=== PATIENT | female | born 1965 | race American Indian/Alaskan Native ===

== ENCOUNTER 2016-07-22 07:41 | Outpatient (CLI) | payer BC ==
--- NOTE | 2016-07-22 13:13 | Mammography Report ---
BILATERAL DIGITAL SCREENING MAMMOGRAM with CAD: 07/22/16 07:41:00 CLINICAL: Routine screening. COMPARISON:None available. FINDINGS: The breasts are almost entirely fatty. No mass, architectural distortion or suspicious calcifications. IMPRESSION: No mammographic evidence of malignancy. BI-RADS CATEGORY: 1 - - Negative RECOMMENDATION: Routine mammographic screening in one year. COMMENT: Patient follow-up letters are generated by our [employer] application.
== END 2016-07-22 07:42 | disposition home or self-care (01) ==
LOC: MAMMO 07:41
PROVIDERS: ATTEND Family Medicine
DX: Z12.31 Encounter for screening mammogram for malignant neoplasm of breast (principal)
CPT/HCPCS: 77067; G0202

== ENCOUNTER 2017-06-10 03:14 | Emergency (ER) | payer BC ==
[2017-06-10] MEDS ORDERED: TORADOL ONE (03:31)
[2017-06-10] MEDS ORDERED: DUONEB *Not for PRN Use IH ONE ×2 (03:31→03:50)
[2017-06-10 03:35] VITALS: BP 129/79
[2017-06-10] MEDS ORDERED: ZOFRAN ONE ×2 (03:35)
[2017-06-10] MEDS ORDERED: TORADOL IM ONE (03:51)
[2017-06-10] MEDS ORDERED: ZOFRAN IM ONE (03:51)
--- NOTE | 2017-06-10 04:20 | Emergency Department Report ---
Minor Respiratory - HPI Chief Complaint: Upper Respiratory Infection Stated Complaint: COLD SX Time Seen by Provider: 06/10/17 04:19 Duration: 2 Days Severity: moderate Minor Respiratory: Yes Rhinorrhea, Yes Sore Throat, Yes Able to Tolerate Fluids , Yes Cough, Yes Sick Contacts, Yes Fever, No Ear Pain, No Hemoptysis, No Chest Pain, No Shortness of Breath Other History: Patient is a 52-year-old female who presents to ED complaining of cough, but his fever 2 days. She admits intermittent dry cough that causes her chest pain. Patient's sign she denies nausea/vomiting/abdominal pain/chest pain/shortness of breath ED Review of Systems ROS: Stated complaint: COLD SX Other details as noted in HPI Constitutional: denies: chills, fever Eyes: denies: eye pain, eye discharge, vision change ENT: throat pain. denies: ear pain, dental pain, congestion Respiratory: cough. denies: shortness of breath, wheezing Cardiovascular: denies: chest pain, palpitations Endocrine: no symptoms reported Gastrointestinal: denies: abdominal pain, nausea, diarrhea Genitourinary: denies: urgency, dysuria, frequency, hematuria, discharge Musculoskeletal: denies: back pain, joint swelling, arthralgia Skin: denies: rash, lesions Neurological: denies: headache, weakness, paresthesias Psychiatric: denies: anxiety, depression Hematological/Lymphatic: denies: easy bleeding, easy bruising ED Past Medical Hx - Past Medical History Previous Medical History?: Yes Hx Hypertension: Yes Additional medical history: DEPRESSION - Surgical History Past Surgical History?: Yes Additional Surgical History: - Social History Smoking Status: Never Smoker Substance Use Type: None - Medications Home Medications: Home Medications Medication Instructions Recorded Confirmed Last Taken Type HYDROcodone/APAP 5-325 [[place] 1 each PO Q6HR PRN #14 tablet 09/17/13 Unknown Rx 5/325 mg] Hyoscyamine Subl [Levsin Sl] 0.125 mg SL Q4HR PRN #7 tablet 09/17/13 Unknown Rx Lisinopril/Hydrochlorothiazide 1 tab PO QDAY 09/17/13 09/17/13 09/17/13 16:21 History [Zestoretic 20-12.5 mg] Ondansetron [Zofran Odt] 4 mg PO Q4H #14 tab.rapdis 09/17/13 Unknown Rx Sertraline [Zoloft] 50 PO 09/17/13 09/17/13 09/17/13 16:23 History Dicyclomine [Bentyl] 20 mg PO QID #20 tablet 07/26/14 Unknown Rx Promethazine [Phenergan] 25 mg PO Q6H PRN #14 tablet 07/26/14 Unknown Rx Acetamin/Codeine 120-12Mg/5 ml 5 ml PO TID PRN #80 ml 06/10/17 Unknown Rx [Tylenol/Codeine] Benzonatate [Tessalon Perles] 100 mg PO Q8HR #24 capsule 06/10/17 Unknown Rx Cpm/PE/Dm/Acetaminophen/Guaifn 1 each PO Q6H #30 tablet.seq 06/10/17 Unknown Rx [Tylenol Cold-Flu Day-Nt Caplet] Ibuprofen [Motrin] 800 mg PO Q8HR PRN #40 tablet 06/10/17 Unknown Rx Minor Respiratory Exam - Exam General: Vital signs noted. No distress. Alert and acting appropriately. HEENT: Yes Moist Mucous Membranes, No Pharyngeal Erythema, No Pharyngeal Exudates, No Rhinorrhea, No Conjuctival Injection, No Frontal Tenderness, No Maxillary Tenderness Ear: Neither TM Bulge, Neither TM Erythema, Neither EAC Pain, Neither EAC Discharge Neck: Yes Supple, No Adenopathy Lungs: Yes Good Air Exchange, No Wheezes, No Ronchi, No Stridor, No Cough, No Labored Respirations, No Retractions, No Use of Accessory Muscles, No Other Abnormal Lung Sounds Heart: Yes Regular, No Murmur Abdomen: Yes Normal Bowel Sounds, No Tenderness, No Peritoneal Signs Skin: No Rash, No Edema Neurologic: Alert and oriented, no deficits. Musculoskeletal: Unremarkable. ED Course Vital Signs 06/10/17 06/10/17 06/10/17 03:20 03:47 04:01 Temperature 101.9 F H 101.9 F H Pulse Rate 124 H 124 H Respiratory 24 20 20 Rate Blood Pressure 129/79 Blood Pressure 129/79 [Right] O2 Sat by Pulse 97 97 Oximetry ED Medical Decision Making - Radiology Data Radiology results: report reviewed, image reviewed FINAL REPORT EXAM: XR CHEST ROUTINE 2V HISTORY: fever/cough TECHNIQUE: PA and lateral chest radiographs PRIORS: None. FINDINGS: No mediastinal shift. Cardiac silhouette is not enlarged. No pneumothorax, effusion, or focal pulmonary opacity. No acute skeletal finding. IMPRESSION: No focal pulmonary opacity. Transcribed By: MB Dictated By: NORAH GALAN MD Electronically Authenticated By: NORAH GALAN MD Signed Date/Time: 06/10/17 0058 - Medical Decision Making 52-year-old female presents with influenza A infection. Fever reduced during the ED stay. Discussed with mother symptomatic relief with [id number] medications. Influenza a test positive, and B test negative. Discussed sit also symptoms over 48 hours so the no need for Tamiflu Chest x-ray shows no acute cardiopulmonary findings I discussed test results with the patient. Discussed continue Tylenol and Motrin as needed for fever and pain. Discussed increase fluids and diet intake. Discussed rest much needed. Discussed daily vitamin C for immune booster. Discussed follow-up with PCP in 3-5 days. Patient verbally states she understands and will comply the following instructions and follow-up Vital signs stable. Patient is in no acute distress Critical care attestation.: If time is entered above; I have spent that time in minutes in the direct care of this critically ill patient, excluding procedure time. ED Disposition Clinical Impression: Influenza A, Viral syndrome Disposition: DC-01 TO HOME OR SELFCARE Is pt being admited?: No Does the pt Need Aspirin: No Condition: Stable Instructions: Influenza (ED), H1N1 Influenza (ED), Viral Syndrome (ED) Additional Instructions: Make sure to follow up with the primary care physician as discussed. Take all your medications as you've been prescribed. If you have any worsening symptoms or develop new symptoms please return to ED immediately. Prescriptions: Acetamin/Codeine 120-12Mg/5 ml [Tylenol/Codeine] 5 ml PO TID PRN #80 ml PRN Reason: Pain Benzonatate [Tessalon Perles] 100 mg PO Q8HR #24 capsule Cpm/PE/Dm/Acetaminophen/Guaifn [Tylenol Cold-Flu Day-Nt Caplet] 1 each PO Q6H # 30 tablet.seq Ibuprofen [Motrin] 800 mg PO Q8HR PRN #40 tablet PRN Reason: Pain Referrals: PRIMARY CARE, [Primary Care Provider] - 3-5 Days WAYNE AVLLE MD [Referring] - 3-5 Days MARTIN ALDRIDGE MD [Referring] - 3-5 Days Forms: Work/School Release Form(ED) Time of Disposition: 05:50
--- NOTE | 2017-06-10 05:02 | XRay Report ---
FINAL REPORT EXAM: XR CHEST ROUTINE 2V HISTORY: fever/cough TECHNIQUE: PA and lateral chest radiographs PRIORS: None. FINDINGS: No mediastinal shift. Cardiac silhouette is not enlarged. No pneumothorax, effusion, or focal pulmonary opacity. No acute skeletal finding. IMPRESSION: No focal pulmonary opacity.
[2017-06-10] MEDS ORDERED: TYLENOL/CODEINE PO ONE (05:38)
[2017-06-10] MEDS ORDERED: DELTASONE PO ONE (05:38)
== END 2017-06-10 06:14 | disposition home or self-care (01) ==
LOC: ED 03:14
DX: J11.1 Influenza due to unidentified influenza virus with other respiratory manifestations (principal); B34.9 Viral infection, unspecified; I10 Essential (primary) hypertension
CPT/HCPCS: 71046; 87400; 96372; 99283; J1885; J2405; J7512

== ENCOUNTER 2017-08-24 05:44 | Day surgery (SDC) | payer BC ==
[~2017-08-24 05:44] MED LIST: ANCEF/STERILE WATER 2 GM/20 ML IV NR; DECADRON IV ONE; MARCAINE 0.25% INFILTRATI ONE; XYLOCAINE 1% 20 mL INFILTRATI ONE
[2017-08-24] MEDS ORDERED: MARCAINE 0.25% INFILTRATI ONE ×2 (06:41→07:50)
[2017-08-24] MEDS ORDERED: XYLOCAINE 1% 20 mL ONE (06:41)
[2017-08-24] MEDS ORDERED: DECADRON ONE (06:41)
[2017-08-24] MEDS ORDERED: ANTIBIOTIC OINT TP ONE (06:41)
[2017-08-24] MEDS ORDERED: NACL BACTERIOSTATIC INFILTRATI ONE (06:43)
--- NOTE | 2017-08-24 07:08 | Anesthesia Day of Surgery ---
Anesthesia Day of Surgery - Day of Surgery Patient Examined: Yes Patient H&P Reviewed: Yes Patient is NPO: Yes
--- NOTE | 2017-08-24 07:08 | Anesthesia Consultation ---
Anesthesia Consult and Med Hx Date of service: 08/24/17 - Airway Anesthetic Teeth Evaluation: Bridges ROM Head & Neck: Adequate Mental/Hyoid Distance: Adequate Mallampati Class: Class II Intubation Access Assessment: Probably Good - Pulmonary Exam CTA: Yes - Cardiac Exam Cardiac Exam: RRR - Pre-Operative Health Status ASA Pre-Surgery Classification: ASA2 Proposed Anesthetic Plan: General, MAC - Pulmonary Hx Smoking: No Hx Sleep Apnea: No (JOSE MIGUEL PRE SCREEN HIGH RISK) - Cardiovascular System Hx Hypertension: Yes (X 6 YRS) - Central Nervous System Hx Back Pain: Yes Hx Psychiatric Problems: Yes (depression) - Other Systems Hx Cancer: No Hx Obesity: Yes - Additional Comments Anesthesia Medical History Comments: Informed consent obtained
[2017-08-24] MEDS ORDERED: DILAUDID IV PRN (07:12)
[2017-08-24] MEDS ORDERED: VERSED ONE (07:27)
[2017-08-24] MEDS ORDERED: DIPRIVAN 10 MG/ML IV ONE ×3 (07:27→08:21)
[2017-08-24] MEDS ORDERED: XYLOCAINE MPF 2% ONE (07:27)
[2017-08-24] MEDS ORDERED: DILAUDID ONE (07:27)
[2017-08-24] MEDS ORDERED: XYLOCAINE 1% 20 mL INFILTRATI ONE (07:50)
[2017-08-24] MEDS ORDERED: NACL 0.9% 1000 ML 1,000 ML IV SCH (08:00)
[2017-08-24] MEDS ORDERED: VERSED IV NR (08:00)
[2017-08-24] MEDS ORDERED: DECADRON IV ONE (08:50)
--- NOTE | 2017-08-24 09:30 | XRay Report ---
LEFT FOOT, 2 VIEWS History: Postoperative bunionectomy of the left foot. Findings: No comparison. Left bunionectomy changes are noted involving the distal left first metatarsal. [address]. There is no evidence for acute fracture or bony erosions. The remaining bony structures are intact. Impression: Surgical changes as described. No acute abnormality appreciated.
[2017-08-24 09:42] VITALS: BP 138/66
--- NOTE | 2017-08-24 14:11 | Post Anesthesia Evaluation ---
- Post Anesthesia Evaluation Patient Participated: Yes Airway Patent: Yes Stable Respiratory Function: Yes Nausea/Vomiting: No Temp > 96.8F: Yes Pain Manageable: Yes Adequeate Hydration: Yes Anesthesia Complications: No
--- NOTE | 2017-08-26 19:20 | Operative Report ---
PREOPERATIVE DIAGNOSIS: Painful bunion, left foot. POSTOPERATIVE DIAGNOSIS: Painful bunion, left foot. ANESTHESIA: Local with IV sedation. TOURNIQUET left ankle. ESTIMATED BLOOD LOSS: Less than 10 mL. PROCEDURE IN DETAIL: The patient was brought into the operating room, placed on the operating table in the supine position. Following intravenous sedation, the patient was given 2 g of Ancef prophylactically. At this time, a Martínez type block was performed at the first metatarsophalangeal joint and with 12 mL of 1:1 mixture of 1% lidocaine plain plus 0.25% Marcaine plain was infiltrated into the affected site after cleaning it with alcohol swab. At this time, a well-padded pneumatic ankle tourniquet was placed 2 to 3 cm to the proximal ankle just above the medial and lateral malleoli. At this time, the foot was then scrubbed, prepped and draped, and an Esmarch was used to encircle the foot. A pneumatic ankle tourniquet was inflated to 250 mmHg. At this time, attention was directed to the prominent first metatarsophalangeal joint with a lateral deviation of the hallux. An initial incision was made with a 10 blade at the medial aspect of the first metatarsophalangeal joint and deepened with both blunt and sharp dissection. The incision was approximately 7 to 8 cm in length. Care was then taken to protect all vital and neurovascular structures and deep dissection carried deep down to the capsular structures in which a constant capsulotomy was then performed, thus exposing the prominent first metatarsal head and base of the proximal phalanx. At this time, with the use of a sagittal saw, a 3 mm wedge medially was thus removed from the medial metatarsal head along with the proximal base of the proximal phalanx 2 mm wedge was performed. At this time, a dorsal wedge of tissue/bone was removed at the dorsal aspect of the metatarsal, which was passed from the operative field. At this time, a lateral release was performed via a medial approach. At this time, further deformity and reduction was needed, therefore, Z-type osteotomy was then performed, internal fixation x 2 screws cannulated was placed across the osteotomy site. At this time, the redundant bone was removed medially and screws were reinforced and tightened. Capsulotomy was performed with a V-type capsulotomy with the base dorsal in the apex medially and plantarly at the first metatarsophalangeal joint and the area was flushed copiously with normal sterile saline and the toe and foot was held in a more pronated and corrected position loaded and with deep capsule closure performed with 3-0 and 4-0 Vicryl followed by subcutaneous closure with 4-0 Vicryl. Subcuticular closure was performed with 4-0 Prolene. 1 mL of dexamethasone phosphate was infiltrated after the application of half-inch Steri-Strips, bacitracin ointment, Adaptic, and sterile compressive dressing was applied. Pneumatic ankle tourniquet was deflated. Prompt hyperemic response was noted to all digits of the affected foot with a hyperemic time of less than 3 seconds. The patient tolerated the procedure and anesthesia well, will be transferred to recovery with vital signs will be monitored. The patient will be discharged home with both written and oral postop instructions. JOB# [id number] FLORENCE/SADIA
== END 2017-08-24 09:55 | disposition home or self-care (01) ==
LOC: OR 05:44
PROVIDERS: ATTEND Podiatrist Foot & Ankle Surgery
DX: M21.612 Bunion of left foot (principal); M20.12 Hallux valgus (acquired), left foot; I10 Essential (primary) hypertension; E66.9 Obesity, unspecified; F32.9 Major depressive disorder, single episode, unspecified
CPT/HCPCS: 28292; 73620; 81025; 88304; 88311; C1713; C1769; J0690; J1100; J1170; J2250; J2704; J7030